=== PATIENT | male | born 1940 | race Caucasian/White ===

== ENCOUNTER 2016-11-17 15:14 | Emergency (ER) | payer MEDICARE, MEDICAID ==
--- NOTE | 2016-11-17 15:23 | UC ---
Skin Complaint HPI - HPI Summary HPI Summary: hit right hand on a stone wall Thursday abrasion over 3rd knuckle and laceration 2 cm x [id number] over 2nd knuckle - History of Current Complaint Chief Complaint: UCSkin Time Seen by Provider: 11/17/16 15:19 Stated Complaint: RIGHT HAND INJURY Hx Obtained From: Patient Onset/Duration: Sudden Onset - 2, Still Present Timing: Constant Onset Severity: Moderate Current Severity: Moderate Pain Intensity: 4 Pain Scale Used: 0-10 Numeric Location: Discrete Character: Redness Aggravating: Other - movement Alleviating: Nothing Associated Signs & Symptoms: Positive: Tenderness Related History: Trauma - Allergy/Home Medications Allergies/Adverse Reactions: Allergies Allergy/AdvReac Type Severity Reaction Status Date / Time No Known Allergies Allergy Verified 11/17/16 15:35 Review of Systems Constitutional: Negative Skin: Other - aabrasion right 3rd knuckle, laceration right 2nd right knuckle Eyes: Negative ENT: Negative Respiratory: Negative Cardiovascular: Negative Gastrointestinal: Negative Genitourinary: Negative Motor: Negative Neurovascular: Negative Musculoskeletal: Negative Neurological: Negative Psychological: Negative All Other Systems Reviewed And Are Negative: Yes PMH/Surg Hx/FS Hx/Imm Hx Previously Healthy: No Cardiovascular History: Hypertension - Surgical History Surgical History: Yes Surgery Procedure, Year, and Place: OPEN HEART 06/2005, PENILE IMPLANT( PREVIOUSLY CLEARED...AMS CLEAR FOR 1.5 ONLY), THORACOTOMY, Left LOWER LOBECTOMY - Family History Known Family History: Positive: None - Social History Occupation: Retired Lives: With Family Alcohol Use: 37 Years Ago Substance Use Type: None Smoking Status (MU): Never Smoked Tobacco Have You Smoked in the Last Year: No - Immunization History Most Recent Influenza Vaccination: Not the 2013/2014 season Most Recent Pneumonia Vaccination: "I don't think so" Physical Exam Triage Information Reviewed: Yes Appearance: Well-Appearing, No Pain Distress, Well-Nourished Vital Signs Reviewed: Yes Eye Exam: Normal Eyes: Positive: Conjunctiva Clear ENT Exam: Normal ENT: Positive: Normal ENT inspection, Hearing grossly normal. Negative: Nasal congestion, Nasal drainage, Trismus, Muffled/hoarse voice Dental Exam: Normal Neck exam: Normal Neck: Positive: Supple, Nontender Respiratory Exam: Normal Respiratory: Positive: Chest non-tender, No respiratory distress, No accessory muscle use Cardiovascular Exam: Normal Cardiovascular: Positive: RRR, Pulses Normal, Brisk Capillary Refill Musculoskeletal Exam: Normal Musculoskeletal: Positive: Strength Intact, ROM Intact, No Edema Neurological Exam: Normal Neurological: Positive: Alert, Muscle Tone Normal Psychological Exam: Normal Skin Exam: Other Skin: Positive: Other - laceration and abrasion as described Diagnostics - Radiology No standard instances Xray Interpretation: No Acute Changes Radiology Interpretation Completed By: Radiologist Re-Evaluation - Re-Evaluation First Eval Change: Unchanged - wounds cleaned-unable to repair due to age of laceration Course/Dx - Course Course Of Treatment: splint to decrease movement to support healing, mild soap and water wash, follow with pcp prn - Differential Diagnoses - Skin Complaint Differential Diagnoses: Other - abrasion, laceration, foreign body, contusion, fracture - Diagnoses Provider Diagnoses: laceration without repair, contusion right hand Discharge - Discharge Plan Condition: Stable Disposition: HOME Prescriptions: Cephalexin CAP* [Keflex CAP*] 500 mg PO QID #20 cap Patient Education Materials: Diphtheria/Acellular Pertussis/Tetanus Booster Vaccine (By injection), Laceration (ED) Referrals: Pako Hugo DO [Primary Care Provider] - If Needed
[2016-11-17] MEDS ORDERED: Tetan/Diph/Pertus SYR(Tdap)* 0.5 ML SYR(BOOSTRIX) use SYR IM ONE (15:24)
[2016-11-17 15:35] VITALS: BP 114/53
--- NOTE | 2016-11-17 16:11 | RAD ---
Indication: Fourth and fifth digit lacerations RIGHT hand following injury involving a stone. Assess for foreign body Comparison: No relevant prior exams available on the [facility] PACS for comparison. Technique: AP and lateral views RIGHT hand. REPORT AND IMPRESSION: No radiopaque foreign body or subcutaneous emphysema evident. Soft tissue swelling throughout. Negative for fracture or malalignment. 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
== END 2016-11-17 16:20 | disposition home or self-care (01) ==
LOC: UCCORT 15:14
DX: S61.212A Laceration without foreign body of right middle finger without damage to nail, initial encounter (principal); S60.221A Contusion of right hand, initial encounter; W22.8XXA Striking against or struck by other objects, initial encounter; Y92.9 Unspecified place or not applicable; M19.041 Primary osteoarthritis, right hand
CPT/HCPCS: 90471; 90715; 99213; G0463

== ENCOUNTER 2019-03-14 15:19 | Inpatient (IN) | payer MEDICARE, MEDICAID ==
[2019-03-14] MEDS ORDERED: Acetaminophen TAB* 325 MG PO PRN (15:26)
[2019-03-14] MEDS ORDERED: Levofloxacin 750 MG IVPREMIX(* 750 MG/150 ML BAG IVPB SCH (16:00)
--- OUTSIDE RECORDS SUMMARY | 2019-03-14 16:37 | XMS REPORT | Continuity of Care Document ---
:1940 External Reference #:[id number] Author Name Pako Hugo DO Address [address] [place] [id number] Problems Active Problems Provider Date Malignant lymphoma of lymph nodes Pako Hugo DO Onset: 02/03/2013 Benign essential hypertension Pako Hugo DO Onset: 04/06/2012 Mixed hyperlipidemia Pako Hugo DO Onset: 04/06/2012 Coronary arteriosclerosis Pako Hugo DO Onset: 04/06/2012 Malignant neoplasm of lower lobe, bronchus or Pako Hugo DO Onset: 04/06 lung Pure hypercholesterolemia Pako Hugo DO Onset: 06/01/2014 Primary malignant neoplasm of unspecified site Pako Hugo DO Onset: 02/2019 (clinical) Social History Type Date Description Comments Sex Unknown Tobacco Use Start: Unknown Never Smoked Cigarettes ETOH Use Denies alcohol use Recreational Drug Use Denies Drug Use Tobacco Use Start: Unknown Patient has never smoked Smoking Status Reviewed: 01/14/19 Patient has never smoked Allergies, Adverse Reactions, Alerts Description No Known Drug Allergies Medications Active Medications SIG Qnty Indications Ordering Provider Date Magnesium Aspartate 2 qd Pako Hugo DO 05/27/2012 65mg Tablets Aspirin Adult Low 1 po qd I25.10 Unknown Strength 81mg Tablets DR Multivitamins 1 po qd OTC Unknown Capsules Co Q 10 2qd Unknown Capsules [place]-3 2 qd Unknown Capsules Acetaminophen Extra Every 6 Hours as Unknown Strength Needed prn Pain 500mg Tablets Ibuprofen Every 4 Hours as Unknown 200mg Tablets Needed For Fever Bystolic Once Daily if I25.10 Unknown 5mg Tablets SBP > 140 I10 Eliquis 5mg Tablets 1 by mouth twice a day Unknown Sandostatin [place] every month Unknown 30mg Kit Immunizations CPT Code Status Date Vaccine Lot # [id number] Given 11/17/2018 Shingrix (Shingles) Zoster Vaccine HZV, Recombinant, Subunit, Adj [id number] Given 05/14/2018 Shingrix (Shingles) Zoster Vaccine HZV, Recombinant, Subunit, Adj [id number] Given 02/15/2018 Flu Vaccine NOS 18348 Given 02/15/2018 Prevnar 13 Pneumococal Conjugate Vaccine 69861 Given 09/18/2009 Pneumococcal 23 Immunization Adult Or Immunosuppressed Patient 06987 Given 09/18/2009 Tdap (Adacel) Ages 7 And Above Only Vital Signs Date Vital Result Comment 01/14/2019 4:12pm Weight 182.00 lb Heart Rate 70 /min BP Systolic 116 mmHg BP Diastolic 76 mmHg Respiratory Rate 16 /min Height 68 inches 5'8" 01/14/19 O2 % BldC Oximetry 98 % BMI (Body Mass Index) 27.7 kg/m2 12/29/2018 10:40am Body Temperature 98.0 F Weight 184.00 lb Heart Rate 58 /min BP Systolic 100 mmHg BP Diastolic 64 mmHg Respiratory Rate 18 /min Height 68.4 inches 5'8.40" BMI (Body Mass Index) 27.6 kg/m2 Results Test Date Facility Test Result H/L Range Note Hemoglobin A1c 01/05/2019 [facility] Hemoglobin A1c 6.4 % High 4.1-5.9 1 Estimated Average Glucose Calc 137 mg/dL 71-140 CBC with Auto Diff-fcmg 01/05/2019 [facility] WBC 7.4 K/uL 4.1-11.0 RBC 4.01 M/uL Low 4.60-6.10 Hemoglobin 13.2 gm/dL Low 13.5-18.0 Hematocrit 38.7 % Low 41.0-53.0 MCV 96.5 fL 80.0-97.0 MCH 32.8 pg High 27.0-32.0 MCHC 34.0 g/dL 32.0-36.0 RDW 14.1 % 11.5-14.5 PLT Count 258 K/ul 140-400 MPV 8.8 FL 7.1-10.7 Neutrophil 68.7 % 35.0-75.0 Lymphocyte 15.6 % Low 16.0-52.0 Monocyte 6.8 % 2.0-10.0 Eosinophil 8.4 % High 0.0-5.0 Basophil 0.5 % 0.0-4.0 Abs Neutrophils 5.1 K/uL 2.1-8.0 Abs Lymphocytes 1.2 K/uL 0.8-5.5 Abs Monocytes 0.5 K/uL 0.1-1.0 Abs Eosinophils 0.6 K/uL High 0.0-0.5 Abs Basophils 0.0 K/uL 0.0-0.3 Basic (BMP) 01/05/2019 [facility] Sodium 137 mmol/L 135-146 2 Potassium 4.4 mmol/L 3.5-5.2 Chloride# 100 mmol/L 97-110 3 Carbon Dioxide 27 mmol/L 24-34 Glucose 123 mg/dL High 70-105 BUN 13 mg/dL 6-26 Creatinine 1.0 mg/dL 0.5-1.4 Calcium 9.2 mg/dL 8.5-10.5 4 Female Egfr 55 Low >60 5 Male Egfr 74 >60 6 Anion Gap 10 mmol/L 5-15 7 Laboratory test finding 01/05/2019 [facility] TSH 0.78 uIU/mL 0.35-4.94 Lipid Treatment 01/05/2019 [facility] Cholesterol 219 mg/dL High 50-199 Triglycerides 107 mg/dL 30-200 HDL 38 mg/dL 29-71 8 Chol/ HDL Ratio 5.8 ratio 4.0-6.7 VLDL 21 mg/dL 2-29 LDL (Calc) 160 mg/dL High 20-99 9 Alt 188 U/L High 3-42 Ast 58 U/L High 8-42 Laboratory test 12/29/2018 [facility] Urine Culture Microbiology res <SEE 10 finding NOTE> Laboratory test 12/29/2018 [facility] Cytology Fluid SEE NOTE 11 finding Specimen 1 Fastin hours 2 Updated reference range on new analyzer 3 Updated reference range on new analyzer 4 Updated reference range 08-25-2018 5 Concerning GFR Guidelines for Americans: Normal function or mild renal disease, if clinically at risk: >/= 60 mL/min Moderately decreased: 30-59 Severely decreased: 15-29 Renal failure: <15 There is reduced accuracy above 60ml/min/1.73 m squared, but the numeric value may be clinically useful in the near 60 range 6 Concerning GFR Guidelines: Normal function or mild renal disease, if clinically at risk: >/= 60 mL/min Moderately decreased: 30-59 Severely decreased: 15-29 Renal failure: <15 There is reduced accuracy above 60ml/min/1.73 m squared, but the numeric value may be clinically useful in the near 60 range Glomerular Filtration Rate (GFR) is estimated based on the CKD-EPI equation, which assumes a steady state for creatinine as recommended by the National Kidney Disease Education Program in conjunction with the National Institutes of Health and the National Kidney Foundation. Clinical conditions in which it may be necessary to measure GFR by using clearance methods include extremes of age and body size, severe malnutrition or obesity, diseases of skeletal muscle, paraplegia or quadriplegia, vegetarian diet, rapidly changing kidney function, and calculation of the dose of potentially toxic drugs that are excreted by the kidneys. 7 Updated Reference Range -2017 8 Per NCEP ATP III Guidelines: Results lower than 40 mg/dL are suggestive of increased risk for coronary artery disease. Results > or = to 60 mg/dL are considered a negative risk factor. 9 Per NCEP ATP III Guidelines: Normal Population <130 Patients with medical conditions: CHD/DM Optimal: <100 Borderline high: 130-159 High: 160-189 Very high: >189 10 Microbiology results SOURCE Random urine FINAL RESULT No growth 11 [facility]. [address] [place] [address] MISCELLANEOUS CYTOLOGY REPORT Source of Specimen(s): A: LBP Urine, Voided Clinical Diagnosis and History: R31.29 Gross Description LBP Urine, Voided: 40 cc cloudy orange fluid. Final Diagnosis Specimen Adequacy Satisfactory Final Diagnosis NEGATIVE FOR HIGH-GRADE UROTHELIAL CARCINOMA. Benign squamous epithelial and urothelial cells with degenerative features. Processed and screen As applicable, positive and negative controls for all immunohistochemical and/or special stains were reviewed and considered appropriate. Reported: 01/03/2019 12:41 Electronically Signed Out By Margarita Russell D.O. [facility] Job Hand: Monica QUIROZ([facility]) [facility] [place]: R31.29 CPT Code: A: 60805U Unless otherwise specified, testing performed by [facility] [address] [place] [id number] Procedures Description No Information Available Medical Devices Description No Information Available Encounters Type Date Location Provider Dx Diagnosis Office Visit 12/29/2018 [facility] Jane Torres PA R31.29 Other microscopic 10:30a hematuria Z68.27 Body mass index (BMI) 27.0-27.9, adult Assessments Date Code Description Provider 01/14/2019 Z00.00 Encounter for general adult medical HugoPakoDO examination without abnormal findings 01/14/2019 C85.98 Non-Hodgkin lymphoma, unspecified, lymph Sandhya HugoewDO nodes of multiple s 01/14/2019 C34.32 Malignant neoplasm of lower lobe, LEFT Sandhya Hugoew, bronchus or lung 01/14/2019 I10 Essential (primary) hypertension HugoPakoDO 01/14/2019 I73.00 Raynaud's syndrome without gangrene Pako Hugo DO 01/14/2019 I25.10 Atherosclerotic heart disease of [place] Hugo PakoDO coronary artery with 01/14/2019 E78.2 Mixed hyperlipidemia Pako HugoDO 01/14/2019 K42.9 Umbilical hernia without obstruction or BethelPakoDO gangrene 01/14/2019 Z85.828 Personal history of other malignant neoplasm [place] PakoDO of skin 01/14/2019 R73.01 Impaired fasting glucose Pako HugoDO 01/14/2019 C7A.00 Malignant carcinoid tumor of unspecified site Pako Hugo DO 01/14/2019 R05 Cough HugoPakoDO 01/14/2019 Z68.27 Body mass index (BMI) 27.0-27.9, adult HugoPakoDO 01/05/2019 R73.01 Impaired fasting glucose HugoPakoDO 01/05/2019 R73.01 Impaired fasting glucose Schedule, Laboratory 01/05/2019 E78.2 Mixed hyperlipidemia Pako HugoDO 01/05/2019 E78.2 Mixed hyperlipidemia Schedule, Laboratory 01/05/2019 R73.01 Impaired fasting glucose [facility] 01/05/2019 E78.2 [facility] 12/29/2018 R31.29 Other microscopic hematuria Jane Torres PA 12/29/2018 Z68.27 Body mass index (BMI) 27.0-27.9, adult Jane Torres PA 12/29/2018 R31.29 Other microscopic hematuria [facility] Plan of Treatment Future Appointment(s):07/08/2019 8:05 am - Schedule, Laboratory at [facility]2019 8:00 am - Pako Hugo, at [facility]01/14/2019 - Pako Hugo, Z00.00 Encounter for general adult medical examination without abnormal findingsFollow up:x-ray next week. Blood work in 6 months and will follow up with me in 6 months.C85.98 Non-Hodgkin lymphoma, unspecified, lymph nodes of multiple sC34.32 Malignant neoplasm of lower lobe, LEFT bronchus or lungI10 Essential ( primary) hypertensionComments:Today, the patient's BP is well controlled at 116/ 761. Patient is on Bystolic and has been taking itif blood pressure is greater than 140.2. The patient will benefit from maintaining a low sodium diet.3. The patient was encouraged to monitor BP periodically at home and maintain a log of the same to bring along during the next visit for comparison.4. Advised the patient to stay hydrated.5. We will continue to monitor.I73.00 Raynaud's syndrome without eebkysxrC21.10 Atherosclerotic heart disease of [place] coronary artery withE78.2 Mixed hyperlipidemiaNew Labs:CBC with Auto Diff-fcmg, Scheduled: 07/08/19Basic (BMP), Scheduled: 07/08/19TSH, Scheduled: Lipid Treatment, Scheduled: 07/08/19K42.9 Umbilical hernia without obstruction or vugoxdsuR49.828 Personal history of other malignant neoplasm of skinR73.01 Impaired fasting glucoseNew Labs:Hemoglobin A1c, Scheduled: Comments:Her A1c today is 6.4. The patient was advised to reduce the amount of carbohydrates in diet and to avoid concentrated sweets. Advised to increase exercise. We will monitor the patient's blood sugar on a periodic basis.C7A.00 Malignant carcinoid tumor of unspecified siteR05 CoughNew Xrays:Chest Xray, 2 Views, Scheduled: 01/19/19Comments:Will obtain chest x-ray for further determination of this. Will continue to monitor.Z68.27 Body mass index (BMI) 27.0-27.9, adultComments:His BMI is at 27.7. He was strongly encouraged to lose weight with low-calorie diet and exercises.We will continue to monitor his weight and BMI periodically. Functional Status Description No Information Available Mental Status Description No Information Available Referrals Description No Information Available
--- NOTE | 2019-03-14 17:17 | PN ---
Progress Note - Progress Note Date of Service: 03/14/19 SOAP: Subjective: []Re-examined in clinic @ 1530. Feeling much better. No hypotension. HR decreased into 80s (from 100). Objective: [] Vital Signs Temp Pulse Resp BP Pulse Ox 97.6 F 80 18 132/63 98 03/14/19 16:37 03/14/19 16:37 03/14/19 16:37 03/14/19 16:37 03/14/19 16:37 A&Ox3, EOMI, neuro grossly non-focal HRR +PP=bilat., good cap refill, no edema Laboratory Tests 03/14/19 03/14/19 03/14/19 11:05 11:05 11:05 WBC 9.8 Hgb 13.6 L Hct 39 L Plt Count 176 Absolute Neuts (auto) 7.7 Sodium 135 Potassium 4.2 Chloride 99 L Carbon Dioxide 26 Anion Gap 10 BUN 29 H Creatinine 1.14 BUN/Creatinine Ratio 25.4 H Lactic Acid 2.6 H* Total Bilirubin 1.20 H AST 105 H ALT 83 H Alkaline Phosphatase 927 H 03/14/19 15:01 WBC Hgb Hct Plt Count Absolute Neuts (auto) Sodium Potassium Chloride Carbon Dioxide Anion Gap BUN Creatinine BUN/Creatinine Ratio Lactic Acid 2.3 H* Total Bilirubin AST ALT Alkaline Phosphatase Assessment: []78 yo male with metastatic neuroendocrine cancer recently diagnosed with PNA and now septic. Sepsis protocol initiated in the office with NS 30 mL/kg bolus and initiation of broad spectrum abx. to cover atypicals. His lactic acid remains elevated @ 2.3 (down from 2.6), however no signs of decompensation ( elevated bili related to known liver disease). Plan: []Admission as per H&P - lactic acid and CMP @ 1900 - cont. fluids
[2019-03-14 19:39] LABS: Albumin 3.1 g/dL (3.2-5.2); Albumin/Globulin Ratio 1.2 (1-3); BUN/Creatinine Ratio 26.9 (8-20); Calcium 8.7 mg/dL (8.6-10.3); EGFR African American 94.8 (>60); EGFR Non-African American 78.4 (>60); Globulin 2.5 g/dL (2-4); Potassium 4.2 mmol/L (3.5-5.0); Total Bilirubin 1.1 mg/dL (0.2-1.0); Total Protein 5.6 g/dL (6.4-8.9)
[2019-03-14] MEDS ORDERED: Iohexol 300* (CONTRAST) 10 ML SDV IV ONE (19:43)
[2019-03-14] MEDS: Apixaban* 5 MG TAB PO SCH (22:29)
[2019-03-14] MEDS: NS 0.9% 1000 ML** 1,000 ML IV SCH (22:30)
[2019-03-15 08:49] LABS: ABS Basophils 0.1 10^3/ul (0-0.2); ABS Eosinophils 0.3 10^3/ul (0-0.6); ABS Lymphocytes 0.8 10^3/ul (1.0-4.8); ABS Monocytes 0.6 10^3/ul (0-0.8); ABS Neutrophils 6.2 10^3/ul (1.5-7.7); Eosinophil % 3.5 %; Hematocrit 34 % (42-52); Hemoglobin 11.6 g/dL (14.0-18.0); Lymphocyte % 10.5 %; Mean Corpuscular HGB Conc 34 g/dL (31-36); Mean Corpuscular Hemoglobin 31 pg (27-31); Mean Corpuscular Volume 91 fL (80-94); Mean Platelet Volume 8.2 fL (7.4-10.4); Platelet Count 132 10^3/uL (150-450); Red Blood Count 3.78 10^6 /uL (4.18-5.48); Red Cell Distribution Width 13 % (10-15)
[2019-03-15 09:06] LABS: Albumin 3.2 g/dL (3.2-5.2); Albumin/Globulin Ratio 1.2 (1-3); BUN/Creatinine Ratio 23.6 (8-20); Calcium 8.8 mg/dL (8.6-10.3); EGFR African American 99.8 (>60); EGFR Non-African American 82.5 (>60); Globulin 2.6 g/dL (2-4); Potassium 3.9 mmol/L (3.5-5.0); Total Bilirubin 1.2 mg/dL (0.2-1.0); Total Protein 5.8 g/dL (6.4-8.9)
[2019-03-15] MEDS: Apixaban* 5 MG TAB PO SCH ×2 (09:25→20:23)
[2019-03-15] MEDS: NS 0.9% 1000 ML** 1,000 ML IV SCH ×2 (09:28→23:17)
--- NOTE | 2019-03-15 10:17 | PN ---
Progress Note - Progress Note Date of Service: 03/15/19 SOAP: Subjective: []Feeling much better than yesterday. Was able to eat some and feels a little stronger. Has walked some. Did not sleep well last night, "Its too loud." Medications: Acetaminophen (Tylenol Tab*) 650 mg PO Q4H PRN PRN Reason: PAIN - MILD Apixaban (Eliquis*) 5 mg PO BID [facility] Last Admin: 03/15/19 09:25 Dose: 5 mg Sodium Chloride (Ns 0.9% 1000 Ml) 1,000 mls @ 75 mls/hr IV PER RATE KIM Last Admin: 03/15/19 09:28 Dose: 75 mls/hr Levofloxacin/Dextrose (Levaquin 750 Mg Ivpremix(*)) 750 mg in 150 mls @ 100 mls /hr IVPB 1200 KIM; Protocol Objective: [] Vital Signs Temp Pulse Resp BP Pulse Ox 98.7 F 82 20 134/64 96 03/15/19 07:15 03/15/19 07:15 03/15/19 08:00 03/15/19 07:15 03/15/19 07:15 A&Ox3, EOMI, neuro grossly non-focal HRR, S1S2, tele SR LS dim. +BS +PP=bilat., no edema Laboratory Results - last 24 hr 03/14/19 03/14/19 03/15/19 19:16 19:16 02:53 WBC RBC Hgb Hct MCV MCH MCHC RDW Plt Count MPV Neut % (Auto) Lymph % (Auto) [place] % (Auto) Eos % (Auto) Baso % (Auto) Absolute Neuts (auto) Absolute Lymphs (auto) Absolute Monos (auto) Absolute Eos (auto) Absolute Basos (auto) Absolute Nucleated RBC Nucleated RBC % Sodium 134 L Potassium 4.2 Chloride 102 Carbon Dioxide 24 Anion Gap 8 BUN 25 H Creatinine 0.93 Est GFR ( Amer) 94.8 Est GFR (Non-Af Amer) 78.4 BUN/Creatinine Ratio 26.9 H Glucose 143 H Lactic Acid 1.5 1.6 Calcium 8.7 Total Bilirubin 1.10 H AST 94 H ALT 72 H Alkaline Phosphatase 788 H Total Protein 5.6 L Albumin 3.1 L Globulin 2.5 Albumin/Globulin Ratio 1.2 03/15/19 03/15/19 03/15/19 08:37 08:38 08:38 WBC 8.0 RBC 3.78 L Hgb 11.6 L Hct 34 L MCV 91 MCH 31 MCHC 34 RDW 13 Plt Count 132 L MPV 8.2 Neut % (Auto) 77.8 Lymph % (Auto) 10.5 [place] % (Auto) 7.5 Eos % (Auto) 3.5 Baso % (Auto) 0.7 Absolute Neuts (auto) 6.2 Absolute Lymphs (auto) 0.8 L Absolute Monos (auto) 0.6 Absolute Eos (auto) 0.3 Absolute Basos (auto) 0.1 Absolute Nucleated RBC 0.0 Nucleated RBC % 0.0 Sodium 134 L Potassium 3.9 Chloride 102 Carbon Dioxide 23 Anion Gap 9 BUN 21 Creatinine 0.89 Est GFR ( Amer) 99.8 Est GFR (Non-Af Amer) 82.5 BUN/Creatinine Ratio 23.6 H Glucose 113 H Lactic Acid 1.6 Calcium 8.8 Total Bilirubin 1.20 H AST 94 H ALT 68 H Alkaline Phosphatase 851 H Total Protein 5.8 L Albumin 3.2 Globulin 2.6 Albumin/Globulin Ratio 1.2 Microbiology: 03/14/19 12:34 Blood Venous Aerobic Blood Culture - Preliminary 03/14/19 12:34 Blood Venous Anaerobic Blood Culture - Preliminary No Growth Day 1 No Growth Day 1 03/14/19 12:05 Blood Venous Aerobic Blood Culture - Preliminary 03/14/19 12:05 Blood Venous Anaerobic Blood Culture - Preliminary No Growth Day 1 No Growth Day 1 Assessment: []78 yo male with metastatic neuroendocrine cancer recently started on Everolimus however held as of 03/11 when he was diagnosed with bibasilar PNA (@ [facility] where he refused to stay), presenting to the office yesterday with progressive decline despite oral abx., found to be septic, and now significant improvement since admission. Plan: []1. Sepsis: appears resolved however recurrent lactic >2 - lactic acidosis likely related to advanced cancer and not cont.'d infectious process - repeat cultures now, repeat lactic tomorrow AM, cont. IV fluids & abx. 2. Cancer: tx. on hold - hopeful to resume Everolimus tomorrow Dispo: as long as stays stable overnight will plan d/c home tomorrow after 72 hrs of IV abx. as long as no growth on cultures
[2019-03-15] MEDS: Levofloxacin 750 MG IVPREMIX(* 750 MG/150 ML BAG IVPB SCH (12:39)
[2019-03-16] MEDS: Apixaban* 5 MG TAB PO SCH (10:14)
--- NOTE | 2019-03-16 11:14 | DS ---
- Discharge Summary Admission Date: 03/14/19 Discharge Date: 03/16/19 Discharge Diagnosis: 1. Sepsis: resolved 2. Community acquired Pneumonia: improved with IV quinolone, will plan Levaquin for full 2 week course and f/u imaging after 3. Neuroendocrine cancer: resume Everolimus 4. Incidental PEs: continue Eliquis Discharge Medications: Medication Instructions Recorded Confirmed Type Acetaminophen [Mapap] 500 mg PO TID PRN 03/14/19 03/14/19 History Apixaban* [Eliquis*] 5 mg PO BID 03/14/19 03/14/19 History Everolimus [Afinitor] 10 mg PO DAILY #30 tablet 03/16/19 Rx Levofloxacin TAB* [Levaquin TAB*] 750 mg PO DAILY #11 tab 03/16/19 Rx Condition: Good Disposition: Home Activity: As tolerated Diet: As tolerated, enc. PO fluids Hospital Course: Please see admission note for full H&P, however, briefly, Mr. Sanchez is well known to our service due to his unfortunate diagnosis of neuroendocrine carcinoma, recently progressed and started on Everolimus 10 mg daily. He presented to the office on 03/14/19 for f/u to ER visit on 03/11 with diagnosis of bilat. PNA (to note admission was recommended however he declined, also on he was started on Augmentin and Azithromycin, however with interaction the Azithromycin was discontinued). In the office he was notably fatigued and complained of severe weakness. Clinical exam was consistent with pneumonia. Labs revealed a lactic of 2.6 with mild tachycardia in the office prompting sepsis work-up and admission for IV antibiotics. Repeat lactic acid following bolus in the office was 2.3 and this continued to decline during admission. To note he had a repeat lactic acid drawn on 03/15 AM that was 2.3, however he has been afebrile, with stable HR, and no hypotension. Repeat cultures were obtained. Cultures from 03/14 remain negative. No further elevation of lactic acid was noted and this is likely reflexive of his known advanced cancer. On admission a CT of the chest was obtained that revealed bilat. pleural effusions with consolidation and known enlarged lymph nodes. Mr. Cortes continues to feel well and much improved from admission. He has had no cardiac dysrhythmias. He will be discharged home following his 3rd dose of IV antibiotics and then tomorrow resume oral Levaquin at home. He has been instructed to resume his chemotherapy and will follow-up with our office early next week. Follow-up: Dr. 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 Encouraged pt to request foods as desired; pt receptive Malnutrition Assessment: Goals 1) Adequate po intake to support lean body mass and hydration status 2) Improve fluid/electrolyte balance w/ adequate po intake 3) Maintain bowel regularity w/ adequate po intake w/o development of diarrhea/constipation
[2019-03-16 11:24] VITALS: BP 125/58
[2019-03-16] MEDS: Levofloxacin 750 MG IVPREMIX(* 750 MG/150 ML BAG IVPB SCH (12:01)
== END 2019-03-16 14:20 | disposition home or self-care (01) | DRG 871 ==
LOC: MED 16:26
PROVIDERS: ADMIT Internal Medicine Hematology & Oncology; ATTEND Internal Medicine Hematology & Oncology
DX: A41.9 Sepsis, unspecified organism (principal); J18.9 Pneumonia, unspecified organism; C7A.8 Other malignant neuroendocrine tumors; I10 Essential (primary) hypertension; E78.5 Hyperlipidemia, unspecified; I25.10 Atherosclerotic heart disease of native coronary artery without angina pectoris; N40.0 Benign prostatic hyperplasia without lower urinary tract symptoms; Z86.711 Personal history of pulmonary embolism; Z79.01 Long term (current) use of anticoagulants; Z79.1 Long term (current) use of non-steroidal anti-inflammatories (NSAID); Z79.899 Other long term (current) drug therapy; Z95.1 Presence of aortocoronary bypass graft; Z82.49 Family history of ischemic heart disease and other diseases of the circulatory system; Z80.7 Family history of other malignant neoplasms of lymphoid, hematopoietic and related tissues; Z80.41 Family history of malignant neoplasm of ovary
CPT/HCPCS: 36415; 71260; 80053; 83605; 85025; 87040; 99223; 99239; Q9967

== ENCOUNTER 2019-03-30 15:55 | Observation (INO) | payer MEDICARE, OTHER ==
[2019-03-30] MEDS ORDERED: Temazepam CAP* 15 MG PO PRN (16:12)
[2019-03-30 19:11] LABS: ALT 316 U/L (7-52); Albumin 2.9 g/dL (3.2-5.2); Albumin/Globulin Ratio 1.4 (1-3); Amylase 18 U/L (29-103); BUN/Creatinine Ratio 39.7 (8-20); Blood Urea Nitrogen 56 mg/dL (6-24); C Reactive Protein 90.19 mg/L (<8.01); CO2 Carbon Dioxide 22 mmol/L (22-32); Calcium 8.8 mg/dL (8.6-10.3); Chloride 101 mmol/L (101-111); EGFR African American 58.7 (>60); EGFR Non-African American 48.5 (>60); Globulin 2.1 g/dL (2-4); Glucose 219 mg/dL (70-100); Magnesium 2.3 mg/dL (1.9-2.7); Sodium 135 mmol/L (135-145)
[2019-03-30 19:20] LABS: Anion Gap 12 mmol/L (2-11)
[2019-03-30 19:25] LABS: Alkaline Phosphatase 1856 U/L (34-104)
[2019-03-30 19:26] LABS: ABS Lymphocytes 0.6 10^3/ul (1.0-4.8); ABS Monocytes 0.7 10^3/ul (0-0.8); ABS Neutrophils 11.8 10^3/ul (1.5-7.7); ABS Nucleated RBC 0.1 10^3/ul; Hematocrit 35 % (42-52); Hemoglobin 11.7 g/dL (14.0-18.0); Lymphocyte % 4.5 %; Mean Corpuscular HGB Conc 34 g/dL (31-36); Mean Corpuscular Hemoglobin 31 pg (27-31); Mean Corpuscular Volume 92 fL (80-94); Mean Platelet Volume 9.4 fL (7.4-10.4); Nucleated Red Blood Cells % 0.6; Platelet Count 70 10^3/uL (150-450); Red Cell Distribution Width 15 % (10-15); White Blood Count 13.2 10^3/uL (3.5-10.8)
[2019-03-30] MEDS ORDERED: Iodixanol* (CONTRAST) 320 MG/ML 100 ML SDV IV ONE (19:44)
[2019-03-30 20:25] LABS: Potassium Redraw 4.5 mmol/L (3.5-5.0)
[2019-03-30] MEDS: Apixaban* 5 MG TAB PO SCH (21:50)
[2019-03-30] MEDS: Dexamethasone TAB* 4 MG PO SCH (21:51)
[2019-03-30] MEDS: NS 0.9% 1000 ML** 1,000 ML IV SCH (23:06)
[2019-03-31] MEDS: NS 0.9% 1000 ML** 1,000 ML IV SCH ×2 (04:34→16:45)
[2019-03-31 05:47] LABS: Hematocrit 35 % (42-52); Hemoglobin 12.1 g/dL (14.0-18.0); Mean Corpuscular HGB Conc 34 g/dL (31-36); Mean Corpuscular Hemoglobin 31 pg (27-31); Mean Corpuscular Volume 90 fL (80-94); Mean Platelet Volume 9.1 fL (7.4-10.4); Platelet Count 69 10^3/uL (150-450); Red Blood Count 3.91 10^6 /uL (4.18-5.48); Red Cell Distribution Width 14 % (10-15); White Blood Count 14.9 10^3/uL (3.5-10.8)
[2019-03-31 05:59] LABS: Albumin 2.8 g/dL (3.2-5.2); Albumin/Globulin Ratio 1.1 (1-3); BUN/Creatinine Ratio 38.8 (8-20); Calcium 8.9 mg/dL (8.6-10.3); EGFR Non-African American 53.7 (>60); Globulin 2.5 g/dL (2-4); Potassium 4.4 mmol/L (3.5-5.0); Total Bilirubin 6.4 mg/dL (0.2-1.0); Total Protein 5.3 g/dL (6.4-8.9)
--- NOTE | 2019-03-31 09:42 | PN ---
Progress Note - Progress Note Date of Service: 03/31/19 SOAP: Subjective: very weak. speaks to me mostly with eyes closed. grimaces when he moves but denies pain. no nausea. Objective: Vital Signs Temp Pulse Resp BP Pulse Ox 97.2 F 80 18 119/74 99 03/31/19 03:25 03/31/19 03:25 03/31/19 03:25 03/31/19 03:25 03/31/19 03:25 sitting up, eyes closed, uncomfortable appearing conversant and appropriate very thin ttp over RUQ no le edema Apixaban (Eliquis*) 5 mg PO BID [facility] Last Admin: 03/30/19 21:50 Dose: 5 mg Dexamethasone (Decadron Tab*) 4 mg PO BID [facility] Last Admin: 03/30/19 21:51 Dose: 4 mg Sodium Chloride (Ns 0.9% 1000 Ml) 1,000 mls @ 100 mls/hr IV PER RATE [facility] Last Admin: 03/31/19 04:34 Dose: 100 mls/hr Ondansetron HCl (Zofran Inj*) 4 mg IV Q4H PRN PRN Reason: NAUSEA Temazepam (Restoril Cap*) 15 mg PO BEDTIME PRN PRN Reason: INSOMNIA Laboratory Results - last 24 hr 03/30/19 03/30/19 03/30/19 18:41 18:41 18:41 WBC 13.2 H RBC 3.80 L Hgb 11.7 L Hct 35 L MCV 92 MCH 31 MCHC 34 RDW 15 Plt Count 70 L D MPV 9.4 Neut % (Auto) 89.8 Lymph % (Auto) 4.5 [place] % (Auto) 5.5 Eos % (Auto) 0.0 Baso % (Auto) 0.2 Absolute Neuts (auto) 11.8 H Absolute Lymphs (auto) 0.6 L Absolute Monos (auto) 0.7 Absolute Eos (auto) 0.0 Absolute Basos (auto) 0.0 Absolute Nucleated RBC 0.1 Nucleated RBC % 0.6 Sodium 135 Potassium TNP Chloride 101 Carbon Dioxide 22 Anion Gap 12 H BUN 56 H Creatinine 1.41 H Est GFR ( Amer) 58.7 Est GFR (Non-Af Amer) 48.5 BUN/Creatinine Ratio 39.7 H Glucose 219 H Calcium 8.8 Magnesium 2.3 Total Bilirubin 5.80 H Direct Bilirubin TNP Indirect Bilirubin TNP AST TNP ALT 316 H Alkaline Phosphatase 1856 H Ammonia TNP C-Reactive Protein 90.19 H Total Protein 5.0 L Albumin 2.9 L Globulin 2.1 Albumin/Globulin Ratio 1.4 Amylase Lipase 03/30/19 03/30/19 03/30/19 18:41 20:00 20:00 WBC RBC Hgb Hct MCV MCH MCHC RDW Plt Count MPV Neut % (Auto) Lymph % (Auto) [place] % (Auto) Eos % (Auto) Baso % (Auto) Absolute Neuts (auto) Absolute Lymphs (auto) Absolute Monos (auto) Absolute Eos (auto) Absolute Basos (auto) Absolute Nucleated RBC Nucleated RBC % Sodium Potassium 4.5 Chloride Carbon Dioxide Anion Gap BUN Creatinine Est GFR ( Amer) Est GFR (Non-Af Amer) BUN/Creatinine Ratio Glucose Calcium Magnesium Total Bilirubin Direct Bilirubin 4.10 H Indirect Bilirubin AST 536 H ALT Alkaline Phosphatase Ammonia 90 H C-Reactive Protein Total Protein Albumin Globulin Albumin/Globulin Ratio Amylase 18 L Lipase 82 03/31/19 03/31/19 05:17 05:17 WBC 14.9 H RBC 3.91 L Hgb 12.1 L Hct 35 L MCV 90 MCH 31 MCHC 34 RDW 14 Plt Count 69 L MPV 9.1 Neut % (Auto) Lymph % (Auto) [place] % (Auto) Eos % (Auto) Baso % (Auto) Absolute Neuts (auto) Absolute Lymphs (auto) Absolute Monos (auto) Absolute Eos (auto) Absolute Basos (auto) Absolute Nucleated RBC Nucleated RBC % Sodium 135 Potassium 4.4 Chloride 104 Carbon Dioxide 22 Anion Gap 9 BUN 50 H Creatinine 1.29 H Est GFR ( Amer) 65.0 Est GFR (Non-Af Amer) 53.7 BUN/Creatinine Ratio 38.8 H Glucose 181 H Calcium 8.9 Magnesium Total Bilirubin 6.40 H Direct Bilirubin Indirect Bilirubin AST 502 H ALT 335 H Alkaline Phosphatase Ammonia C-Reactive Protein Total Protein 5.3 L Albumin 2.8 L Globulin 2.5 Albumin/Globulin Ratio 1.1 Amylase Lipase Assessment: 78 yo M w metastatic neuroendocrine tumor with recent rapid progression, just starting everolimus, however now with brain mets and rapid liver failure with a PS of 3. We discussed this at length. We discussed that it is possible that this is behaving more like a small cell tumor, but regardless it has progressed so quickly with marked hepatic failure and poor performance status and i have recommended consideration of hospice. He is very much on board for this. I do think given how weak he is that we need to discharge when immediate sign on is available. I have discussed this at length with Thea (his partner) who is appropriately very sad but in agreement. Plan: -home with hospice when available
[2019-03-31] MEDS: Apixaban* 5 MG TAB PO SCH (09:52)
[2019-03-31] MEDS: Dexamethasone TAB* 4 MG PO SCH ×2 (09:52→22:06)
[2019-03-31] MEDS ORDERED: Morphine ORAL CONCENTRATE* 5 MG/0.25 ML ORAL.SYRIN PO PRN (12:08)
[2019-03-31] MEDS: Ondansetron INJ* 2 MG/ML VIAL IV PRN (13:49)
--- NOTE | 2019-03-31 15:29 | CONSULT ---
Palliative / Hospice Consult Ordering Provider: Netta Schafer - PCP-Bethel Referal Reason: Goals of care/Miralax/MS - Subjective Code Status: DNR Advance Directives Location: No Advance Directives MOLST Part A Completed: Yes - on chart MOLST Part E Completed:: Yes - on chart - History or Present Illness History or Present Illness: 78yo male brought into hospital due to abdominal pain, constipation, decreased po intake and increased sleepiness. 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 PSHx lives with long time partner Thea 18yrs, he has 2 sons one has and the other is estranged, no tob, no etoh retired from [employer] and [employer]. Studies abd/pel CT-wide spread metastatic disease to liver, lymph, L adrenal and bone, H /H 12.1/35, BUN/Cr 50/1.29, egfr 53.7, tbili 6.4, ast 502, alt 335, NH4 90, CRP 90.19 and alb 2.8. Pt admitted for abdominal pain and jaundice. All history is from family and medical record pt not able to contribute sleeping during interview. Lab Values: Abnormal Lab Results 03/30/19 03/30/19 03/30/19 18:41 18:41 18:41 WBC 13.2 H RBC 3.80 L Hgb 11.7 L Hct 35 L MCV 92 MCH 31 MCHC 34 RDW 15 Plt Count 70 L D MPV 9.4 Neut % (Auto) 89.8 Lymph % (Auto) 4.5 [place] % (Auto) 5.5 Eos % (Auto) 0.0 Baso % (Auto) 0.2 Absolute Neuts (auto) 11.8 H Absolute Lymphs (auto) 0.6 L Absolute Monos (auto) 0.7 Absolute Eos (auto) 0.0 Absolute Basos (auto) 0.0 Absolute Nucleated RBC 0.1 Nucleated RBC % 0.6 Sodium 135 Potassium TNP Chloride 101 Carbon Dioxide 22 Anion Gap 12 H BUN 56 H Creatinine 1.41 H Est GFR ( Amer) 58.7 Est GFR (Non-Af Amer) 48.5 BUN/Creatinine Ratio 39.7 H Glucose 219 H Calcium 8.8 Magnesium 2.3 Total Bilirubin 5.80 H Direct Bilirubin TNP Indirect Bilirubin TNP AST TNP ALT 316 H Alkaline Phosphatase 1856 H Ammonia TNP C-Reactive Protein 90.19 H Total Protein 5.0 L Albumin 2.9 L Globulin 2.1 Albumin/Globulin Ratio 1.4 Amylase Lipase 03/30/19 03/30/19 03/30/19 18:41 20:00 20:00 WBC RBC Hgb Hct MCV MCH MCHC RDW Plt Count MPV Neut % (Auto) Lymph % (Auto) [place] % (Auto) Eos % (Auto) Baso % (Auto) Absolute Neuts (auto) Absolute Lymphs (auto) Absolute Monos (auto) Absolute Eos (auto) Absolute Basos (auto) Absolute Nucleated RBC Nucleated RBC % Sodium Potassium 4.5 Chloride Carbon Dioxide Anion Gap BUN Creatinine Est GFR ( Amer) Est GFR (Non-Af Amer) BUN/Creatinine Ratio Glucose Calcium Magnesium Total Bilirubin Direct Bilirubin 4.10 H Indirect Bilirubin AST 536 H ALT Alkaline Phosphatase Ammonia 90 H C-Reactive Protein Total Protein Albumin Globulin Albumin/Globulin Ratio Amylase 18 L Lipase 82 03/31/19 03/31/19 05:17 05:17 WBC 14.9 H RBC 3.91 L Hgb 12.1 L Hct 35 L MCV 90 MCH 31 MCHC 34 RDW 14 Plt Count 69 L MPV 9.1 Neut % (Auto) Lymph % (Auto) [place] % (Auto) Eos % (Auto) Baso % (Auto) Absolute Neuts (auto) Absolute Lymphs (auto) Absolute Monos (auto) Absolute Eos (auto) Absolute Basos (auto) Absolute Nucleated RBC Nucleated RBC % Sodium 135 Potassium 4.4 Chloride 104 Carbon Dioxide 22 Anion Gap 9 BUN 50 H Creatinine 1.29 H Est GFR ( Amer) 65.0 Est GFR (Non-Af Amer) 53.7 BUN/Creatinine Ratio 38.8 H Glucose 181 H Calcium 8.9 Magnesium Total Bilirubin 6.40 H Direct Bilirubin Indirect Bilirubin AST 502 H ALT 335 H Alkaline Phosphatase 1759 H Ammonia C-Reactive Protein Total Protein 5.3 L Albumin 2.8 L Globulin 2.5 Albumin/Globulin Ratio 1.1 Amylase Lipase Laboratory Last Values WBC 14.9 10^3/uL (3.5-10.8) H 03/31/19 05:17 RBC 3.91 10^6 /uL (4.18-5.48) L 03/31/19 05:17 Hgb 12.1 g/dL (14.0-18.0) L 03/31/19 05:17 Hct 35 % (42-52) L 03/31/19 05:17 MCV 90 fL (80-94) 03/31/19 05:17 MCH 31 pg (27-31) 03/31/19 05:17 MCHC 34 g/dL (31-36) 03/31/19 05:17 RDW 14 % (10-15) 03/31/19 05:17 Plt Count 69 10^3/uL (150-450) L 03/31/19 05:17 MPV 9.1 fL (7.4-10.4) 03/31/19 05:17 Neut % (Auto) 89.8 % 03/30/19 18:41 Lymph % (Auto) 4.5 % 03/30/19 18:41 [place] % (Auto) 5.5 % 03/30/19 18:41 Eos % (Auto) 0.0 % 03/30/19 18:41 Baso % (Auto) 0.2 % 03/30/19 18:41 Absolute Neuts (auto) 11.8 10^3/ul (1.5-7.7) H 03/30/19 18:41 Absolute Lymphs (auto) 0.6 10^3/ul (1.0-4.8) L 03/30/19 18:41 Absolute Monos (auto) 0.7 10^3/ul (0-0.8) 03/30/19 18:41 Absolute Eos (auto) 0.0 10^3/ul (0-0.6) 03/30/19 18:41 Absolute Basos (auto) 0.0 10^3/ul (0-0.2) 03/30/19 18:41 Absolute Nucleated RBC 0.1 10^3/ul 03/30/19 18:41 Nucleated RBC % 0.6 03/30/19 18:41 Sodium 135 mmol/L (135-145) 03/31/19 05:17 Potassium 4.4 mmol/L (3.5-5.0) 03/31/19 05:17 Chloride 104 mmol/L (101-111) 03/31/19 05:17 Carbon Dioxide 22 mmol/L (22-32) 03/31/19 05:17 Anion Gap 9 mmol/L (2-11) 03/31/19 05:17 BUN 50 mg/dL (6-24) H 03/31/19 05:17 Creatinine 1.29 mg/dL (0.67-1.17) H 03/31/19 05:17 Est GFR ( Amer) 65.0 (>60) 03/31/19 05:17 Est GFR (Non-Af Amer) 53.7 (>60) 03/31/19 05:17 BUN/Creatinine Ratio 38.8 (8-20) H 03/31/19 05:17 Glucose 181 mg/dL (70-100) H 03/31/19 05:17 Calcium 8.9 mg/dL (8.6-10.3) 03/31/19 05:17 Magnesium 2.3 mg/dL (1.9-2.7) 03/30/19 18:41 Total Bilirubin 6.40 mg/dL (0.2-1.0) H 03/31/19 05:17 Direct Bilirubin 4.10 mg/dL (0.03-0.18) H 03/30/19 20:00 Indirect Bilirubin TNP 03/30/19 18:41 AST 502 U/L (13-39) H 03/31/19 05:17 ALT 335 U/L (7-52) H 03/31/19 05:17 Alkaline Phosphatase 1759 U/L (34-104) H 03/31/19 05:17 Ammonia 90 mcmol/L (16-53) H 03/30/19 20:00 C-Reactive Protein 90.19 mg/L (<8.01) H 03/30/19 18:41 Total Protein 5.3 g/dL (6.4-8.9) L 03/31/19 05:17 Albumin 2.8 g/dL (3.2-5.2) L 03/31/19 05:17 Globulin 2.5 g/dL (2-4) 03/31/19 05:17 Albumin/Globulin Ratio 1.1 (1-3) 03/31/19 05:17 Amylase 18 U/L (29-103) L 03/30/19 18:41 Lipase 82 U/L (11.0-82.0) 03/30/19 18:41 - Objective Active Medications: Dexamethasone (Decadron Tab*) 4 mg PO BID [facility] Last Admin: 03/31/19 09:52 Dose: 4 mg Sodium Chloride (Ns 0.9% 1000 Ml) 1,000 mls @ 100 mls/hr IV PER RATE [facility] Last Admin: 03/31/19 04:34 Dose: 100 mls/hr Morphine Sulfate (Morphine Oral Concentrate*) 10 mg PO Q2H PRN PRN Reason: PAIN - SEVERE Last Admin: 03/31/19 12:27 Dose: 10 mg Ondansetron HCl (Zofran Inj*) 4 mg IV Q4H PRN PRN Reason: NAUSEA Last Admin: 03/31/19 13:49 Dose: 4 mg Temazepam (Restoril Cap*) 15 mg PO BEDTIME PRN PRN Reason: INSOMNIA Vital Signs: Vital Signs: Temp Pulse Resp BP Pulse Ox 97.6 F 93 16 129/67 95 03/31/19 10:30 03/31/19 10:30 03/31/19 12:27 03/31/19 10:30 03/31/19 10:30 Patient Weight: Weight 70.579 kg Intake and Output: Intake & Output 03/29/19 03/30/19 03/31/19 04/01/19 06:59 06:59 06:59 06:59 Intake Total 959 0 Balance 959 0 Weight 70.579 kg Intake: IV Fluids 959 Oral 0 0 Other: Estimated Void Medium Date of Last Bowel 1 Movement # Bowel Movements 0 Estimated Stool Amount Medium # Voids 2 ADLs: Meal Record Start: 03/30/19 17: 03 Freq: DAILY@0900,1400,1800 Status: Active Protocol: Created 03/30/19 17:03 System (Rec: 03/30/19 17:03 System [id number]) Document 03/30/19 18:00 [id number] (Rec: 03/30/19 22:19 [id number] MED-C13) Document 03/31/19 09:00 [id number] (Rec: 03/31/19 09:37 [id number] MED-C09) Document 03/31/19 14:00 [id number] (Rec: 03/31/19 15:26 [id number] MED-C09) Intake and Output Start: 03/30/19 17: 03 Freq: DAILY@0600,1400,2200 Status: Active Protocol: Created 03/30/19 17:03 System (Rec: 03/30/19 17:03 System [id number]) Document 03/30/19 22:00 [id number] (Rec: 03/30/19 22:23 [id number] MED-C13) Document 03/31/19 04:36 [id number] (Rec: 03/31/19 04:38 [id number] MED-C14) Document 03/31/19 14:00 [id number] (Rec: 03/31/19 14:51 [id number] MED-C09) Head: Normal Ears/Nose/Mouth/Throat: NL Teeth, Lips, Gums Neck: NL Appearance and Movements; NL JVP Cardiovascular: NL Sounds; No Murmurs; No JVD Respiratory: Symmetrical Chest Expansion and Respiratory Effort Abdominal: NL Sounds; No Tenderness; No Distention Neurological: Alert and Oriented x 3 - Assessment Assessment: 78yo male with stage 4 recurrent neuroendocrine tumor with mets to liver, lymph nodes, L adrenal and bone seeking hospice - Plan Consult Plan (MU): Hospice Plan: Spoke with Liane pt's partner, her sister and niece about goals of care. Liane wants to take pt home with hospice stating that's what the pt wants. Hospice information and brochure given. Family is familiar with hospice nieces parents both used hospice. Case management has sent referral and hospital bed has been ordered. Encouraged family to reach out to estranged son. Family realistic about prognosis. Support given questions answered about what to expect and how to plan. Pt is eligible for hospice with diagnosis of Stage 4 recurrent neuroendocrine tumor with mets to liver, lymph nodes, L adrenal and bone. KPS 40 %, PPS 40% - Time On Unit Date of Evaluation: 03/31/19 Hospice Consult Time in: 13:00 Hospice Consult Time Out: 14:00 Hospice Consult Time Total: 60 > 50% of Time Spend In Counseling or Coordinating Care: Yes
[2019-03-31] MEDS ORDERED: Polyethylene Glycol 3350* 17 GM PACKET PO SCH (16:00)
[2019-04-01 01:13] VITALS: BP 119/66
[2019-04-01] MEDS: NS 0.9% 1000 ML** 1,000 ML IV SCH (02:58)
[2019-04-01] MEDS: Ondansetron INJ* 2 MG/ML VIAL IV PRN (08:49)
--- NOTE | 2019-04-01 13:44 | DS ---
CC: Dr. Pako Hugo; Dr. Netta Schafer * DISCHARGE SUMMARY: DATE OF ADMISSION: 03/30/19 DATE OF DISCHARGE: 04/01/19 PRIMARY CARE PROVIDER: Dr. Pako Hugo. ATTENDING PHYSICIAN/PRIMARY ONCOLOGIST: Dr. Netta Schafer.* (DICTATED BY CHELA RAMOS) CONSULTING PALLIATIVE PHYSICIAN: Dr. Linda Herron. DISCHARGING PROVIDER: CHELA Ramos PRIMARY DISCHARGE DIAGNOSIS: Acute biliary obstruction secondary to progression of metastatic neuroendocrine tumor. DISCHARGE MEDICATIONS: 1. Eliquis 5 mg p.o. b.i.d. 2. Dexamethasone 4 mg p.o. b.i.d. 3. MiraLAX 17 g p.o. t.i.d. as needed for constipation. 4. Senna 1 tablet p.o. t.i.d. as needed for constipation. 5. Morphine concentrate 10 mg p.o. q.2 hours as needed for pain. 6. Temazepam 15 mg p.o. at bedtime as needed for insomnia. HOSPITAL IMAGING: CT abdomen and pelvis 03/30/19 shows intervally advanced widespread metastatic disease with involvement of the liver, lymph nodes, left adrenal, and bones, new involvement of the middle left ureter causing a mild obstruction and an interval pathologic fracture noted at L4. The liver appears mildly enlarged. There is compression of both the hepatic and portal veins but remained patent. No obvious ductal dilatation appreciated. HOSPITAL COURSE: This is a 78-year-old gentleman with metastatic neuroendocrine carcinoma and a more remote history of a follicular lymphoma under the care of Dr. Schafer. The patient recently noted progressive disease and started on everolimus. He was then hospitalized with pneumonia. Following that, he developed some intermittent dizziness and an MRI of the brain demonstrated [employer] metastasis in the cerebellum and second in the occipital lobe. The patient was subsequently started on dexamethasone at that time and planned to proceed to gamma knife. He returned to the oncology clinic in the interim complaining of constipation and abdominal pain as well as generalized malaise and general decline in overall performance status. The patient was found to be jaundiced on clinical exam and directly admitted to the hospital. CT of the abdomen and pelvis showed dramatic progression of disease and no obvious intervenable biliary obstruction. The patient received supportive measures and recommendation was to proceed with hospice based on the dramatic progression of the disease after recent change in therapy. The patient met with palliative physician, Dr. Herron during this hospital stay. DISPOSITION AND FOLLOWUP PLAN: The patient is being discharged in stable condition with home hospice. I expected sign on the day of discharge. Oncologist, Dr. Schafer will be the following physician while on hospice without any planned office visits. CHELA RAMOS [id number]/[facility] #: [id number] ANAT
== END 2019-04-01 09:30 | disposition hospice, home (50) ==
LOC: MED 16:58
PROVIDERS: ADMIT Internal Medicine Hematology & Oncology; ATTEND Internal Medicine Hematology & Oncology
DX: R53.1 Weakness (principal); K59.00 Constipation, unspecified; C82.80 Other types of follicular lymphoma, unspecified site; Z92.21 Personal history of antineoplastic chemotherapy; N40.0 Benign prostatic hyperplasia without lower urinary tract symptoms; I25.10 Atherosclerotic heart disease of native coronary artery without angina pectoris; E78.5 Hyperlipidemia, unspecified; I10 Essential (primary) hypertension; Z79.899 Other long term (current) drug therapy; C7A.8 Other malignant neuroendocrine tumors; R10.9 Unspecified abdominal pain; R17 Unspecified jaundice; Z85.72 Personal history of non-Hodgkin lymphomas; Z85.118 Personal history of other malignant neoplasm of bronchus and lung
CPT/HCPCS: 36415; 74177; 80053; 82140; 82150; 82248; 83690; 83735; 85025; 85027; 86140; 96360; 96361; 96365; 96375; 96376; 99212; 99217; 99219; 99220; A9270-GY; G0378; G0463; J2405; J8540; Q9967